=== PATIENT | male | born 1975 | race Hispanic/Latino ===

== ENCOUNTER → 2017-11-09 | Outpatient (CLI) | payer OTHER ==
--- NOTE | 2017-11-09 16:36 | Diagnostic Imaging Report ---
PROCEDURE:ABDOMINAL ULTRASOUND COMPARISON:[facility], US, US ABDOMEN COMPLETE, 04/28/2017, 13:02. INDICATIONS:ABDOMINAL PAIN/ F/U 6 MONTHS TECHNIQUE: Nick-scale and color sonographic images were obtained of the abdomen in transverse and sagittal planes. FINDINGS: Liver: 12.0 cm in length in right midclavicular line. Increased echogenicity. No masses. Main portal vein: 1.0 cm, hepatopetal flow Gallbladder: Present without evidence of calcified gallstones. Two adjacent polyps measure 5 x 6 x 4 mm and 7 x 4 x 4 mm. These are stable. Common Bile Duct: 0.3 cm Sonographic Diaz's sign: Negative Right kidney: 10.3 cm. Echotexture is normal. No mass or hydronephrosis. Left kidney: 10.2 cm. Echotexture is normal. No mass or hydronephrosis. Spleen: 9.8 cm. No mass. Pancreas: Not visualized due to bowel gas. Inferior vena cava: Patent Aorta: Within normal limits Ascites: None Dedicated sonographic interrogation of the left lower quadrant area of pain demonstrates no evidence of mass or hernia. CONCLUSION: 1. Stable gallbladder polyps. 2. Hepatic steatosis. 3. Nonvisualization of pancreas due to bowel gas. Dictated by: Eris Hernandez M.D. on 11/09/2017 at 16:37 Electronically approved by: Eris Hernandez M.D. on 11/09/2017 at 16:37
== END ==
LOC: US 15:22
PROVIDERS: ATTEND Internal Medicine
DX: R10.9 Unspecified abdominal pain (principal)
CPT/HCPCS: 76700